=== PATIENT | male | born 1995 | race Caucasian/White ===

== ENCOUNTER 2017-01-07 08:21 | Day surgery (SDC) | payer OTHER ==
[~2017-01-07 08:21] MED LIST: CEFAZOLIN 2 GM/D5W RTU 2 GM/50 ML RTUPB IV PRN; LACTATED RINGERS 1000 ML IV PRN; LIDOCAINE 0.5% INJ-PF (5 MG/ML) 50 ML SDV SUBCUT PRN; MORPHINE SULFATE 10 MG/ML INJ IV PRN; ONDANSETRON HCL INJ/PF 4 MG/2 ML SDV IV PRN
[2017-01-07] MEDS ORDERED: BUPIVACAINE HCL 0.25 % INJ/PF (2.5 MG/1 ML) 30 ML VIAL ONE (09:01)
[2017-01-07] MEDS ORDERED: HYDROMORPHONE HCL INJ/PF 2 MG/ML AMPULE ONE (10:46)
[2017-01-07] MEDS ORDERED: FENTANYL CITRATE INJ/PF 250 MCG/5 ML AMPULE ONE (10:46)
[2017-01-07] MEDS ORDERED: MIDAZOLAM 2 MG/2 ML INJ ONE (10:47)
[2017-01-07] MEDS ORDERED: PROPOFOL INJ 200 MG/20 ML VIAL IV ONE (10:47)
[2017-01-07] MEDS ORDERED: PROMETHAZINE HCL INJ 25 MG/1 ML VIAL IV PRN ×2 (11:32)
[2017-01-07] MEDS ORDERED: DIPHENHYDRAMINE HCL 50 MG/ML VIAL IV PRN (11:32)
[2017-01-07] MEDS ORDERED: FENTANYL CITRATE INJ/PF 100 MCG/2 ML AMPUL IV PRN ×3 (11:32)
[2017-01-07] MEDS ORDERED: ONDANSETRON HCL INJ/PF 4 MG/2 ML SDV IV PRN (11:32)
[2017-01-07] MEDS ORDERED: OXYCODONE-ACETAMINOPHEN 5-325 MG TABLET PO PRN ×2 (11:32)
[2017-01-07] MEDS ORDERED: MEPERIDINE HCL/PF INJ 25 MG/1 ML DISP.SYRIN IV PRN (11:32)
[2017-01-07] MEDS ORDERED: MORPHINE SULFATE 10 MG/ML INJ IV PRN (11:32)
--- NOTE | 2017-01-07 11:59 | Brief Operative Note ---
BRIEF OPERATIVE REPORT DATE OF SURGERY: 01/07/17 TIME OF SURGERY: 10:00 PREOPERATIVE DIAGNOSIS: left retractile solitary testis POSTOPERATIVE DIAGNOSIS: left retractile solitary testis SURGEON: HANH RODRIGUEZ FINDINGS: 3 point fixation with 3-0 ethibond COMPLICATIONS: none ESTIMATED BLOOD LOSS: 2 TISSUE REMOVED OR ALTERED: none TECHNICAL PROCEDURE: left orchiopexy
[2017-01-07] MEDS: MEPERIDINE HCL/PF INJ 25 MG/1 ML DISP.SYRIN ONE ×2 (12:11→12:16)
[2017-01-07] MEDS: FENTANYL CITRATE INJ/PF 100 MCG/2 ML AMPUL ONE ×2 (12:20→12:22)
[2017-01-07] MEDS ORDERED: DIPHENHYDRAMINE HCL 50 MG/ML VIAL ONE (12:49)
--- NOTE | 2017-01-07 13:08 | OPERATIVE REPORT E ---
Operative Report NAME: LAW KAUFFMAN : 1995 AGE: 21Y DATE OF SURGERY: ROOM: PREOPERATIVE DIAGNOSIS: Left retractile solitary testicle. POSTOPERATIVE DIAGNOSIS: Left retractile solitary testicle. OPERATION: Orchiopexy. SURGEON: Jose Luis Cardona M.D. ANESTHESIA: General endotracheal. ESTIMATED BLOOD LOSS: 3. INTRAVENOUS FLUID: 600 mL Ringer's lactate. DRAINS UTILIZED: None. COMPLICATIONS: None. CONDITION: Stable. SPECIMENS: None. INDICATION FOR PROCEDURE: Patient is a 21-year-old [employer]duty [employer] with a history of a right orchiectomy for testicular cancer. He has a solitary left testicle with history of intermittent torsion and retractile testis who presents for the above procedure. PROCEDURE: The patient was identified in the preoperative holding area. The surgery with all the attendant risks and benefits were again described in detail to the patient. He confirmed his consent to proceed, and he was brought back to the operating room. He had Ancef 2 gm provided. He had sequential compression devices placed. These were cycled prior to induction of general endotracheal anesthesia. His scrotum was shaved, and he was prepped and draped in the usual sterile fashion. A surgical time-out was performed, all were in agreement, and we then started the case. We started by making an approximately 3-cm incision in the non-raphe of the scrotum. We delivered the testis through the incision. We cleared the dartos and cremasterics medially and laterally, and then we opened the tunica albuginea and opened a small hydrocele sac, which we everted posterior to the cord and secured with 3-0 Vicryl in a running stitch. We cauterized the edges of the hydrocele sac. Then we created a pocket inferiorly and laterally for our stitches for the orchiopexy. We placed first the inferior stitch in the most-dependent portion of the scrotum, and then secured it to the testis using a 3-0 Ethibond. Then we did the lateral stitch with the lateral dartos pouch, and then also secured this to the testis. We tied these down each in turn. Once this was done we secured the medial portion of the testis to the median midline raphe on the dartos layer. We then irrigated and provided hemostasis with the Bovie, and closed the dartos and cremasterics with running 3-0 Vicryl. We performed a cord block and then an incisional block with 0.25% Marcaine plain. We then closed the skin with running 4-0 Monocryl in a horizontal mattress stitch. At this point we cleaned the patient, applied skin glue, then placed bacitracin over this, then placed a Fluffs and scrotal support over the testis for general compression. We awoken the patient from anesthesia and transferred him to the PACU in stable condition where he will be recovering. PLAN: Plan is for discharge per PACU protocol. He will have 2 weeks of convalescent leave, followed by 2 weeks of light duty, and follow up with me prior to returning to full duty. DICTATING PHYSICIAN: Jose Luis Cardona MD [id number] PHY#: [id number] ID: [id number] JOB#: [id number] ACCT: [id number] cc:Jose Luis Cardona M.D. > MTDD
[2017-01-07] MEDS ORDERED: ONDANSETRON HCL INJ/PF 4 MG/2 ML SDV ONE (14:44)
[2017-01-07] MEDS ORDERED: DEXAMETHASONE SOD PHOSPHATE INJ 4 MG/1 ML VIAL ONE (14:44)
[2017-01-07] MEDS ORDERED: SUCCINYLCHOLINE CHLORIDE INJ 200 MG/10 ML VIAL ONE (14:44)
[2017-01-07] MEDS ORDERED: LIDOCAINE 2% INJ-PF (20 MG/ML) 10 ML AMPUL ONE (14:44)
[2017-01-07 16:17] VITALS: BP 132/66
== END 2017-01-07 14:30 | disposition home or self-care (01) ==
LOC: OROUT 08:21 → EDBD 12:00 → OROUT 14:30
PROVIDERS: ATTEND Urology
PROC: 0VSB0ZZ Reposition Left Testis, Open Approach (ICD-10-PCS; principal; 2017-01-07 10:45)
DX: N44.8 Other noninflammatory disorders of the testis (principal); F17.210 Nicotine dependence, cigarettes, uncomplicated; Z85.47 Personal history of malignant neoplasm of testis
CPT/HCPCS: 54640; J2250; J1100; J1200; J3010 ×2; J2175; J0330; J2405; J2704; J3490; J0690; 930; J1170